=== PATIENT | male | born 1965 | race Caucasian/White ===

== ENCOUNTER 2017-02-04 10:51 | Outpatient (CLI) | payer OTHER ==
--- NOTE | 2017-02-04 11:45 | DIAGNOSTIC IMAGING REPORT ---
PROCEDURE: XR LUMBAR SPINE 2 OR 3 VIEWS INDICATION: LOW BACK PAIN TECHNIQUE: Three views. COMPARISON: None. FINDINGS: Mild spondylosis L1-2, L2-3, L3-4, and L4-5. No evidence of an acute process or fracture. IMPRESSION: 1. Mild spondylosis L1-L5.
== END 2017-02-04 23:00 ==
LOC: XR SRH 10:51
DX: M47.816 Spondylosis without myelopathy or radiculopathy, lumbar region (principal)